=== PATIENT | female | born 1995 | race Caucasian/White ===

== ENCOUNTER → 2016-12-30 | Outpatient (CLI) | payer OTHER ==
[~2016-12-30] MED LIST: CODE-54 PO; ESCT10T PO; GFCD10B PO; Ibuprofen PO; MELO-195 PO; OXYC-12 PO; SULF1TAB38 PO; depo provera
[2016-12-31 07:52] LABS: HIV AG AB SCREEN Non-Reactive (Non-Reactive); SYPHILIS SCREEN PT Non-Reactive
== END ==
LOC: LAB 15:36
PROVIDERS: ATTEND Nurse Practitioner
DX: Z11.3 Encounter for screening for infections with a predominantly sexual mode of transmission (principal)
CPT/HCPCS: 36415; 86703; 86780